=== PATIENT | male | born 1965 | race Caucasian/White ===

== ENCOUNTER 2016-12-16 18:27 | Emergency (ER) | payer MEDICAID ==
[~2016-12-16] VITALS: Ht 177.8 cm; Wt 65.0 kg
[2016-12-16 19:41] VITALS: BP 130/87
== END 2016-12-16 19:43 | disposition home or self-care (01) ==
LOC: ED 19:38
DX: J30.9 Allergic rhinitis, unspecified (principal); F12.10 Cannabis abuse, uncomplicated
CPT/HCPCS: 99283